=== PATIENT | male | born 1985 | race Caucasian/White ===

== ENCOUNTER 2024-05-24 11:30 | Emergency (ER) | payer MEDICAID ==
[~2024-05-24] VITALS: Ht 172.7 cm; Wt 59.0 kg
[2024-05-24] MEDS ORDERED: IBUPROFEN 600 MG TABLET ONE (12:26)
[2024-05-24] MEDS: IBUPROFEN 600 MG TABLET PO ONE (12:28)
[2024-05-24 13:16] VITALS: BP 145/72; TEMP 97.7; O2SAT 99
== END 2024-05-24 13:17 | disposition home or self-care (01) ==
LOC: ER 11:30
DX: R07.9 Chest pain, unspecified (principal); M54.2 Cervicalgia; M79.602 Pain in left arm; V43.52XA Car driver injured in collision with other type car in traffic accident, initial encounter; Y93.89 Activity, other specified; Y92.488 Other paved roadways as the place of occurrence of the external cause; Y99.8 Other external cause status
CPT/HCPCS: 71045-TC